=== PATIENT | male | born 1990 | race Caucasian/White ===

== ENCOUNTER 2023-01-26 12:37 | Emergency (ER) | payer MEDICAID ==
[~2023-01-26] VITALS: Ht 170.2 cm; Wt 70.0 kg
[2023-01-26 12:46] VITALS: BP 138/89
[2023-01-26] MEDS ORDERED: ACETAMINOPHEN 325MG TABLET PO ONE (17:15)
[2023-01-26] MEDS ORDERED: IBUP-2029 MT (18:51)
== END 2023-01-26 19:06 | disposition home or self-care (01) ==
LOC: ER 12:37
DX: S09.8XXA Other specified injuries of head, initial encounter (principal); M54.2 Cervicalgia; E11.9 Type 2 diabetes mellitus without complications; W22.8XXA Striking against or struck by other objects, initial encounter; Y93.89 Activity, other specified; Y92.512 Supermarket, store or market as the place of occurrence of the external cause; Y99.8 Other external cause status
CPT/HCPCS: 99284